=== PATIENT | female | born 1995 | race Caucasian/White ===

== ENCOUNTER 2018-05-24 05:43 | Inpatient (IN) | payer OTHER ==
[~2018-05-24] VITALS: Ht 162.6 cm; Wt 94.1 kg
[~2018-05-24 05:43] MED LIST: ALBU90AE INH; BECL10.62 INH; LORA1TAB46 PO; PREN1TAB60 PO; SERT50TA PO
[2018-05-24] MEDS ORDERED: LACTATED RINGERS 1,000 ML IV SCH ×3 (05:54→07:14)
[2018-05-24] MEDS ORDERED: D5%-LACTATED RINGERS 1,000 ML IV SCH (05:54)
[2018-05-24] MEDS ORDERED: OXYTOCIN 30U/ 0.9% NaCL 500ML 500 ML IV ONE (05:54)
[2018-05-24] MEDS ORDERED: ONDANSETRON 2MG/ML, 2ML IVPush PRN (06:00)
[2018-05-24] MEDS ORDERED: FENTANYL PF 100 MCG/2ML IVPush PRN (06:00)
[2018-05-24] MEDS ORDERED: CALCIUM CARBONATE 500 MG TAB.CHEW PO PRN (06:00)
[2018-05-24] MEDS ORDERED: FENTANYL PF 100 MCG/2ML IV PRN (06:00)
[2018-05-24] MEDS ORDERED: FENTANYL PF 100 MCG/2ML ONE (06:04)
[2018-05-24] MEDS ORDERED: FENTANYL/BUPIV./NS/PF 250 ML EPIDCONT SCH ×2 (06:07→07:14)
[2018-05-24] MEDS ORDERED: ONDANSETRON ODT 4 MG ONE (06:09)
[2018-05-24 06:26] VITALS: BP 125/72
[2018-05-24] MEDS ORDERED: FENTANYL PF 500 MCG, BUPIVACAINE/PF 0.5%, 30ML 62.5 ML in SODIUM CHLORIDE 0.9% 177.5 ML EPIDCONT SCH (06:30)
[2018-05-24] MEDS ORDERED: LACTATED RINGERS 1,000 ML IVBOLUS PRN ×2 (06:30→07:30)
[2018-05-24] MEDS ORDERED: PENICILLIN GK 5,000,000 UNITS in SODIUM CHLORIDE 0.9% 100 ML IVPB ONE (06:30)
[2018-05-24 06:32] LABS: BASOPHILS # (AUTO) 0.07 x10^3/uL (0-0.1); BASOPHILS % (AUTO) 0 % (0-1); EOSINOPHILS % (AUTO) 1 % (1-7); LYMPHOCYTES # (AUTO) 3.04 x10^3/uL (1-3.4); LYMPHOCYTES % (AUTO) 19 % (22-44); MD NO; MEAN CORPUSCULAR HEMOGLOBIN 29.7 pg (27.0-34.8); MEAN CORPUSCULAR HGB CONC 33.9 g/dL (32.4-35.8); MEAN CORPUSCULAR VOLUME 87.6 fL (80-100); MEAN PLATELET VOLUME 10.3 fL (7.4-10.4); MONOCYTES # (AUTO) 0.87 x10^3/uL (0.2-0.8); MONOCYTES % (AUTO) 5 % (2-9); NEUTROPHILS # (AUTO) 12.38 x10^3/uL (1.8-6.8); NEUTROPHILS % (AUTO) 75 % (42-75); PLATELET COUNT 214 x10^3/uL (130-400); RED BLOOD COUNT 3.65 x10^6/uL (3.82-5.3); RED CELL DISTRIBUTION WIDTH 13.2 % (9.6-15.2)
[2018-05-24] MEDS ORDERED: OXYTOCIN 30U/ 0.9% NaCL 500ML 500 ML ONE ×2 (07:27→10:35)
[2018-05-24] MEDS ORDERED: NEWBORN KIT ONE ×3 (07:27→07:29)
[2018-05-24] MEDS ORDERED: EPHEDRINE 50 MG/ML, 1ML IVPush PRN (07:30)
[2018-05-24] MEDS ORDERED: NALOXONE 0.4 MG/ML, 1ML IVPush PRN (07:30)
[2018-05-24] MEDS: OXYTOCIN 30U/ 0.9% NaCL 500ML 500 ML IV SCH ×2 (09:28→19:28)
[2018-05-24] MEDS ORDERED: MISOPROSTOL 200 MCG TABLET PR PRN (09:30)
[2018-05-24] MEDS ORDERED: ACETAMINOPHEN 325 MG TABLET PO PRN (09:30)
[2018-05-24] MEDS ORDERED: OXYcodone IR 5MG TABLET PO PRN (09:30)
[2018-05-24] MEDS ORDERED: ONDANSETRON 2MG/ML, 2ML IV PRN (09:30)
[2018-05-24] MEDS ORDERED: PENICILLIN GK 2,500,000 UNITS in DEXTROSE 5% 100 ML IVPB SCH (10:30)
[2018-05-24] MEDS ORDERED: IBUPROFEN 600 MG TABLET ONE (10:35)
[2018-05-24] MEDS: IBUPROFEN 600 MG TABLET PO PRN ×3 (10:40→23:15)
[2018-05-24 11:15] VITALS: BP 100/62
[2018-05-24 15:15] VITALS: BP 99/52
[2018-05-24 16:56] LABS: MEAN CORPUSCULAR HEMOGLOBIN 29.4 pg (27.0-34.8); MEAN CORPUSCULAR HGB CONC 33.5 g/dL (32.4-35.8); MEAN CORPUSCULAR VOLUME 87.8 fL (80-100); MEAN PLATELET VOLUME 10.8 fL (7.4-10.4); PLATELET COUNT 180 x10^3/uL (130-400); RED BLOOD COUNT 2.92 x10^6/uL (3.82-5.3); RED CELL DISTRIBUTION WIDTH 13.4 % (9.6-15.2)
[2018-05-24 17:17] LABS: BASOPHILS # (AUTO) 0.04 x10^3/uL (0-0.1); BASOPHILS % (AUTO) 0 % (0-1); EOSINOPHILS # (AUTO) 0.05 x10^3/uL (0-0.4); EOSINOPHILS % (AUTO) 0 % (1-7); LYMPHOCYTES # (AUTO) 3.01 x10^3/uL (1-3.4); LYMPHOCYTES % (AUTO) 16 % (22-44); MD SCAN; MONOCYTES # (AUTO) 1.03 x10^3/uL (0.2-0.8); MONOCYTES % (AUTO) 6 % (2-9); NEUTROPHILS # (AUTO) 14.52 x10^3/uL (1.8-6.8); NEUTROPHILS % (AUTO) 78 % (42-75)
[2018-05-24 19:15] VITALS: BP 117/70
[2018-05-24] MEDS: OXYcodone/APAP 5/325MG TABLET PO PRN (20:22)
[2018-05-24] MEDS: DOCUSATE 100 MG CAPSULE PO PRN (20:22)
[2018-05-24 23:00] VITALS: BP 124/77
[2018-05-24] MEDS ORDERED: RHOGAM FROM BLOOD BANK 1 NOTE EA IM/IV ONE (23:30)
[2018-05-25] MEDS: OXYcodone/APAP 5/325MG TABLET PO PRN ×4 (00:44→23:44)
[2018-05-25] MEDS: OXYTOCIN 30U/ 0.9% NaCL 500ML 500 ML IV SCH ×2 (05:28→15:28)
[2018-05-25] MEDS: IBUPROFEN 600 MG TABLET PO PRN ×3 (05:55→19:13)
[2018-05-25 07:04] VITALS: BP 106/67
[2018-05-25] MEDS: PRENATAL VIT/IRON/FA 1 EACH TABLET PO SCH (10:02)
[2018-05-25] MEDS: DOCUSATE 100 MG CAPSULE PO PRN ×2 (10:02→19:12)
[2018-05-25] MEDS: ACETAMINOPHEN 325 MG TABLET PO PRN (17:33)
[2018-05-25 20:45] VITALS: BP 107/69
[2018-05-26] MEDS: IBUPROFEN 600 MG TABLET PO PRN ×2 (02:52→10:09)
[2018-05-26 07:08] VITALS: BP 110/68
[2018-05-26] MEDS: DOCUSATE 100 MG CAPSULE PO PRN (07:19)
[2018-05-26] MEDS: PRENATAL VIT/IRON/FA 1 EACH TABLET PO SCH (07:19)
[2018-05-26] MEDS: ACETAMINOPHEN 325 MG TABLET PO PRN (07:19)
[2018-05-26] MEDS ORDERED: OXYC-302 PO (10:27)
[2018-05-26] MEDS ORDERED: IBUP-1222 PO (10:27)
== END 2018-05-26 13:31 | disposition home or self-care (01) | DRG 775 ==
LOC: LDOP 05:43 → LDIP 06:03 → 2NW 11:06
PROVIDERS: ADMIT Obstetrics & Gynecology; ATTEND Obstetrics & Gynecology
PROC: 10E0XZZ Delivery of Products of Conception, External Approach (ICD-10-PCS; principal; 2018-05-24)
PROC: 0KQM0ZZ Repair Perineum Muscle, Open Approach (ICD-10-PCS; 2018-05-24)
PROC: 0W8NXZZ Division of Female Perineum, External Approach (ICD-10-PCS; 2018-05-24)
PROC: 3E0R3BZ Introduction of Anesthetic Agent into Spinal Canal, Percutaneous Approach (ICD-10-PCS; 2018-05-24)
PROC: 00HU33Z Insertion of Infusion Device into Spinal Canal, Percutaneous Approach (ICD-10-PCS; 2018-05-24)
PROC: 3E0334Z Introduction of Serum, Toxoid and Vaccine into Peripheral Vein, Percutaneous Approach (ICD-10-PCS; 2018-05-24)
DX: O60.14X0 Preterm labor third trimester with preterm delivery third trimester, not applicable or unspecified (principal); F32.9 Major depressive disorder, single episode, unspecified; J45.909 Unspecified asthma, uncomplicated; F41.9 Anxiety disorder, unspecified; O99.344 Other mental disorders complicating childbirth; O70.1 Second degree perineal laceration during delivery; O99.52 Diseases of the respiratory system complicating childbirth; Z3A.35 35 weeks gestation of pregnancy; Z37.0 Single live birth; Z82.3 Family history of stroke; Z83.3 Family history of diabetes mellitus; Z23 Encounter for immunization; Z67.11 Type A blood, Rh negative; Z88.5 Allergy status to narcotic agent
CPT/HCPCS: 36415; J2790; 85025; 85461; 86850; 86900; G0378; J2540; J3010; J3490; J2590; J7050; J7120